=== PATIENT | female | born 2000 | race Caucasian/White ===

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

== ENCOUNTER 2021-10-10 21:08 | Emergency (ER) | payer MEDICAID ==
[~2021-10-10] VITALS: Ht 160 cm; Wt 120.5 kg
[~2021-10-10 21:08] MED LIST: IBUP-1986 PO
[2021-10-10] MEDS ORDERED: ibuprofen tablet 400 MG TABLET PO ONE (23:45)
[2021-10-11 00:34] LABS: CLARITY,URINE CLEAR (Clear); COLOR,URINE YELLOW (Yellow); GLUCOSE, URINE NEGATIVE (Neg); KETONES,URINE >=80 mg/dl (Neg); LEUKOCYTE ESTERASE ,URINE TRACE (Neg); NITRITES, URINE NEGATIVE (Neg); OCCULT BLOOD,URINE SMALL (Neg); PROTEIN,URINE 30 mg/dl (Neg); UROBILINOGEN,URINE 0.2 E.U/dL (0.2-1.0)
[2021-10-11 00:38] LABS: UA COLLECTION TYPE CLN CATCH MIDSTREAM
[2021-10-11 00:39] LABS: BACTERIA,URINE 1+ /HPF (Neg); RBC,URINE 20-50 /HPF (0-2); SQUAMOUS EPITHELIAL CELL,UR MANY /LPF (FEW)
[2021-10-11 00:40] LABS: MUCUS STRANDS FEW /LPF (Neg)
[2021-10-11] MEDS ORDERED: SULF1TAB49 PO (00:53)
[2021-10-11] MEDS ORDERED: sulfamethoxazole/trimethoprim DS (800/160mg) tablet PO ONE (00:55)
[2021-10-11 01:32] VITALS: BP 145/94
[2021-10-11] MEDS ORDERED: CYCL-1 PO (01:32)
--- NOTE | 2021-10-11 01:33 | NUR ---
MOTHER'S PHONE NUMBER [phone]
== END 2021-10-11 01:35 | disposition home or self-care (01) ==
LOC: ER 21:09
DX: S40.812A Abrasion of left upper arm, initial encounter (principal); M54.59 Other low back pain; N39.0 Urinary tract infection, site not specified; V49.60XA Unspecified car occupant injured in collision with unspecified motor vehicles in traffic accident, initial encounter; Y93.89 Activity, other specified; Y92.89 Other specified places as the place of occurrence of the external cause; Y99.8 Other external cause status
CPT/HCPCS: 81001; 87088; 99283

== ENCOUNTER 2023-02-04 13:53 | Emergency (ER) | payer MEDICAID ==
[~2023-02-04] VITALS: Ht 160 cm; Wt 90.9 kg
[~2023-02-04 13:53] MED LIST changes: +CYCL-1 PO
[2023-02-04] MEDS ORDERED: acetaminophen 325mg/10.15ml oral unit dose solution PO ONE (14:05)
[2023-02-04] MEDS ORDERED: CefTRIAXone 1000mg IM Kit (w/lidocaine diluent) IM ONE (14:50)
[2023-02-04] MEDS ORDERED: prednisoLONE 15mg/5ml oral solution 5ml cup PO ONE ×2 (14:50→15:30)
[2023-02-04 15:54] VITALS: BP 120/73; PULSE 127; RESP 18; TEMP 99.6; O2SAT 99
== END 2023-02-04 15:56 | disposition home or self-care (01) ==
LOC: ER 13:54
DX: J02.0 Streptococcal pharyngitis (principal)
CPT/HCPCS: 93005; 96372; 99283; J0696; J7510

== ENCOUNTER 2024-02-15 15:47 | Emergency (ER) | payer MEDICAID ==
[~2024-02-15] VITALS: Ht 160 cm; Wt 106.8 kg
[2024-02-15] MEDS ORDERED: HYDR-3965 PO (17:46)
[2024-02-15] MEDS: ketorolac trometh 30MG/ML vial 30 MG/ML VIAL IM ONE (18:17)
[2024-02-15 18:32] VITALS: BP 134/86; PULSE 99; RESP 16; TEMP 98; O2SAT 98
== END 2024-02-15 18:33 | disposition home or self-care (01) ==
LOC: ER 15:47
DX: N83.209 Unspecified ovarian cyst, unspecified side (principal); Z88.0 Allergy status to penicillin
CPT/HCPCS: 96372; 99283; J1885

== ENCOUNTER 2025-01-06 11:21 | Emergency (ER) | payer MEDICAID ==
[~2025-01-06] VITALS: Ht 160 cm; Wt 106.5 kg
[2025-01-06 11:37] VITALS: TEMP 97.9
[2025-01-06 12:02] VITALS: BP 136/92; PULSE 94; O2SAT 98
[2025-01-06 12:07] LABS: MEAN PLATELET VOLUME 9.1 FL (7.4-10.4); RED CELL DISTRIBUTION WIDTH 13.4 % (11.5-14.5)
[2025-01-06 12:14] VITALS: RESP 15
[2025-01-06] MEDS: HYDROcodone/acetaminophen 5mg/325mg tablet PO ONE (12:14)
[2025-01-06] MEDS: ketorolac trometh 30MG/ML vial 30 MG/ML VIAL IM ONE (12:14)
[2025-01-06 12:26] LABS: CREATININE 0.69 MG/DL (0.40-0.90); TOTAL CARBON DIOXIDE 26.2 MMOL/L (24-32); eCRCL 104 ML/MIN; eGFR > 90 ML/MIN
[2025-01-06 12:50] LABS: LEUKOCYTE ESTERASE ,URINE TRACE (Neg); NITRITES, URINE NEGATIVE (Neg); OCCULT BLOOD,URINE TRACE-INTACT (Neg)
[2025-01-06 12:51] LABS: URINE HCG NEGATIVE (NEG)
[2025-01-06 12:54] LABS: UA COLLECTION TYPE URINAL
[2025-01-06 12:58] LABS: SQUAMOUS EPITHELIAL CELL,UR MODERATE /LPF (FEW)
[2025-01-06 12:59] LABS: AMORPHOUS URATES 1+; MUCUS STRANDS MODERATE /LPF (Neg)
[2025-01-06] MEDS ORDERED: SULF1TAB49 PO (13:05)
[2025-01-06] MEDS ORDERED: HYDR-3965 PO (13:05)
--- NOTE | 2025-01-06 13:08 | Physician Documentation ---
History of Present Illness Chief Complaint: Abdominal Pain Stated Complaint: ABDOMINAL PAIN Time Seen by MD: 11:53 Primary Medical Doctor: MANPREET EVERETT Mode of Arrival: Ambulatory HPI 24 year old female reports recurrent R flank pain and has known history of R ovarian cyst which has been bothering her for several months intermittently. Today she reports an increase in pain. She denies fevers, UTI symptoms, fevers, N/V/D, concern. Medication Reconciliation Allergies: Coded Allergies: Penicillins (Verified Allergy, Unknown, 01/06/25) Scheduled Cyclobenzaprine* (Cyclobenzaprine*), 1 TAB PO Q8H Ibuprofen (Ibuprofen), 1 TAB PO Q8H Past Medical History Past Medical History: No Pertinent History Past Surgical History: no surgical history Alcohol Use: None Drug Use: none Lives with: Family Lives In: Home Occupation: student, child Review of Systems All Other Systems at this time: Reviewed and Negative Physical Exam Vital Signs: RN Vital Signs have been reviewed: Yes, Temperature: 97.9, Source: Oral, Heart Rate: 94, Respiratory Rate: 15, BP: 136/92, Pulse Oximetry: 98, Weight: 106.500 Oxygen Flow Rate: 0 Physical Exam Gen: no distress HEENT: PERRL, EOMI no neck or facial swelling, Pulm: normal WOB, no distress CTAB Cardiac: deferred Abd: soft, mild RLQ tenderness Skin: w/d/i MSK: no deformity Neuro: nonfocal Psych: normal affect Progress Results/Orders Results/Orders Orders - JOSE BRIGHT MD Cult Urine + [address] (01/06/25 13:00) Completed Orders - JOSE BRIGHT MD Hcg, Ur Ql (01/06/25 11:42) Cbc/Diff (01/06/25 11:42) BMP (01/06/25 11:42) Lipase (01/06/25 11:42) CMP (01/06/25 11:42) Hydrocodone/Apap 5/325mg Tab ([place] 5/32 (01/06/25 12:00) Ketorolac Trometh 30mg/Ml Vial (Toradol (01/06/25 12:00) Ua W/Microscopic, Cult If Ind (01/06/25 12:22) Medications Received in ER Medications (Trade) Dose Ordered Sig/Dick Route PRN Reason Start Time Stop Time Status Last Admin Dose Admin ([place] 5/325mg tablet) 2 tab ONCE ONCE PO 01/06/25 12:00 01/06/25 12:01 DC 01/06/25 12:14 2 TAB (Toradol inj. 30mg/ml) 30 mg ONCE ONCE IM 01/06/25 12:00 01/06/25 12:02 DC 01/06/25 12:14 30 MG Vital Signs 01/06/25 01/06/25 01/06/25 01/06/25 11:37 12:02 12:07 12:14 Temp 97.9 Pulse 88 94 Resp 16 15 15 15 B/P (MAP) 150/97 136/92 (107) Pulse Ox 98 98 O2 Flow Rate 0 01/06/25 12:14 Resp 15 Laboratory Tests Test 01/06/25 11:50 01/06/25 12:22 White Blood Count 12.8 H Red Blood Count 4.85 Hemoglobin 13.9 Hematocrit 40.8 Mean Corpuscular Volume 84.2 Mean Corpuscular Hemoglobin 28.6 Mean Corpuscular Hemoglobin Concent 34.0 Red Cell Distribution Width 13.4 Platelet Count 328 Mean Platelet Volume 9.1 Neutrophils (%) (Auto) 78.0 H Lymphocytes (%) (Auto) 16.8 L Monocytes (%) (Auto) 3.5 Eosinophils (%) (Auto) 1.0 Basophils (%) (Auto) 0.7 Neutrophils # (Auto) 10.0 H Lymphocytes # (Auto) 2.1 Monocytes # (Auto) 0.5 Eosinophils # (Auto) 0.1 Basophils # (Auto) 0.1 CBC Comment Sodium Level 139 Potassium Level 4.3 Chloride Level 105 Carbon Dioxide Level 26.2 Anion Gap 8 Blood Urea Nitrogen 9 Creatinine 0.69 Estimated GFR/1.73 m2 > 90 BUN/Creatinine Ratio 13.0 Glucose Level 113 H Calcium Level 9.0 Total Bilirubin 0.2 Aspartate Amino Transf (AST/SGOT) 17 Alanine Aminotransferase (ALT/SGPT) 20 Alkaline Phosphatase 66 Total Protein 8.5 H Albumin 3.9 Globulin 4.6 H Albumin/Globulin Ratio 0.8 L Lipase 20 Chemistry Comments Urine Specimen Description Urinal Urine Color Yellow Urine Clarity Slightly cloudy Urine pH 6.0 Urine Specific Williamson >=1.030 Urine Protein Trace Urine Glucose (UA) Negative Urine Ketones Negative Urine Occult Blood Trace-intact Urine Nitrite Negative Urine Bilirubin Negative Urine Urobilinogen 0.2 Urine Leukocyte Esterase Trace H Urine RBC 3-10 Urine WBC 5-10 H Urine Squamous Epithelial Cells Moderate Urine Amorphous Urates 1+ Urine Bacteria 1+ Urine Mucus Moderate Urine Culture Indicated Indicated Volume Urine Centrifuged 10 ml Urine HCG, Qualitative Negative Urine Comment Medical Decision Making Additional information obtaine: N/A Findings 24 year old female with likely recurrent ovarian cyst pain. UA also suggested UTI and we will provide pain and ABx meds, return precautions. Patient refused pelvic US at this time despite discussion of risks/benefits. Differential Dx:Considerations: Other Departure Disposition: HOME / SELF CARE / HOMELESS Impression: Primary Impression: Ovarian cyst Additional Impression: UTI (urinary tract infection) Condition: Stable Discharge Instructions: Urinary Tract Infection, Adult Referrals: NO PRIMARY CARE PROVIDER (PCP) Prescriptions Sulfamethoxazole/Trimethoprim (Bactrim Ds Tablet) 800 Mg-160 Mg Tablet 1 TAB PO Q12H for 7 Days, #14 TAB Prov: JOSE BRIGHT MD 01/06/25 Hydrocodone Bit/Acetaminophen 5/325 MG ([place] 5/325 MG) 5 Mg/325 Mg Tablet 1-2 TAB PO Q4-6 hours PRN for pain, #16 TAB Prov: JOSE BRIGHT MD 01/06/25 Education Educated: Patient Educated regarding: diagnosis, treatment, prognosis Signature Scribe Signature: . Attestation: JOSE DIAZ MD Jan 06, 2025 13:08
[2025-01-06] MEDS: sulfamethoxazole/trimethoprim DS (800/160mg) tablet PO ONE (13:31)
== END 2025-01-06 13:43 | disposition home or self-care (01) ==
LOC: ER 11:22
DX: N83.201 Unspecified ovarian cyst, right side (principal); N39.0 Urinary tract infection, site not specified; Z88.0 Allergy status to penicillin
CPT/HCPCS: 36415; 80053; 81001; 81025; 83690; 85025; 87088; 96372; 99283; J1885